=== PATIENT | female | born 1995 | race Caucasian/White ===

== ENCOUNTER → 2021-01-08 | Day surgery (SDC) | payer BC ==
[~2021-01-08] MED LIST: LIDOCAINE HCL 2% LOCAL INJ 5 ML SDV VIAL INJ ONE; METOCLOPRAMIDE HCL 10 MG/2ML VIAL ONE; ONDANSETRON HCL INJ 2MG/ML 2ML 2 MG/ML VIAL ONE; POVIDONE IODINE 0.05% 0.05 % ML PO ONE; PROPOFOL IV EMULSION 10 MG/ML 20 ML VIAL ONE
[2021-01-08 14:45] VITALS: BP 123/80
== END | disposition home or self-care (01) ==
LOC: ENDO 09:32
PROVIDERS: ATTEND Internal Medicine Gastroenterology
DX: K21.00 Gastro-esophageal reflux disease with esophagitis, without bleeding (principal); K31.7 Polyp of stomach and duodenum; K29.50 Unspecified chronic gastritis without bleeding; K92.89 Other specified diseases of the digestive system; Z46.89 Encounter for fitting and adjustment of other specified devices; F32.9 Major depressive disorder, single episode, unspecified; Z01.812 Encounter for preprocedural laboratory examination; Z20.822 Contact with and (suspected) exposure to COVID-19; Z86.16 Personal history of COVID-19
CPT/HCPCS: 43239; 43247; 43251; 74018; 81025; C9113; J2001; J2405; J2704; J2765; U0002; 43235